=== PATIENT | male | born 1950 ===

== ENCOUNTER 2022-03-08 09:15 | Day surgery (SDC) | payer MEDICARE ==
[~2022-03-08] VITALS: Ht 175.3 cm; Wt 85.2 kg
[2022-03-08] MEDS ORDERED: AMLO5 (09:29)
[2022-03-08] MEDS ORDERED: LEVSOD88 (09:29)
[2022-03-08] MEDS ORDERED: BENAZEPRIL HCL40 M1 (09:29)
[2022-03-08] MEDS ORDERED: EZET10 (09:29)
--- NOTE | 2022-03-08 11:22 | NUR ---
03/08/22 1122 Stephanie Martinez 13ML NORMAL SALINE USED TO ELEVATE POLYPS
== END 2022-03-08 11:56 | disposition home or self-care (01) ==
LOC: ORSCSDS 09:15
PROVIDERS: Internal Medicine Gastroenterology
PROC: 0DBP8ZX Excision of Rectum, Via Natural or Artificial Opening Endoscopic, Diagnostic (ICD-10-PCS; principal; 2022-03-08 10:30)
PROC: 0DBL8ZX Excision of Transverse Colon, Via Natural or Artificial Opening Endoscopic, Diagnostic (ICD-10-PCS; principal; 2022-03-08 10:30)
PROC: 0DBH8ZX Excision of Cecum, Via Natural or Artificial Opening Endoscopic, Diagnostic (ICD-10-PCS; principal; 2022-03-08 10:30)
PROC: 0DBK8ZX Excision of Ascending Colon, Via Natural or Artificial Opening Endoscopic, Diagnostic (ICD-10-PCS; principal; 2022-03-08 10:30)
DX: R19.5 Other fecal abnormalities (principal); D12.2 Benign neoplasm of ascending colon; D12.0 Benign neoplasm of cecum; D12.3 Benign neoplasm of transverse colon; D12.8 Benign neoplasm of rectum; K62.1 Rectal polyp; K57.30 Diverticulosis of large intestine without perforation or abscess without bleeding; K64.8 Other hemorrhoids; I10 Essential (primary) hypertension; Z87.891 Personal history of nicotine dependence; Z79.899 Other long term (current) drug therapy
CPT/HCPCS: 88305; J2704; J7120

== ENCOUNTER 2023-10-23 07:58 | Day surgery (SDC) | payer MEDICARE ==
[~2023-10-23] VITALS: Ht 175.3 cm; Wt 84.6 kg
[~2023-10-23 07:58] MED LIST: AMLO5; BENAZEPRIL HCL40 M1; EZET10; LEVSOD88; LOSA50; Lactated Ringer's 1,000 ML IV ONE; MULVITA; propofoL 50 ML IV ONE
[2023-10-23] MEDS ORDERED: Lactated Ringer's 1,000 ML IV ONE (08:45)
[2023-10-23 10:01] VITALS: BP 100/71
== END 2023-10-23 10:06 | disposition home or self-care (01) ==
LOC: ORSCSDS 07:58
PROVIDERS: Specialist
PROC: 3E0H8KZ Introduction of Other Diagnostic Substance into Lower GI, Via Natural or Artificial Opening Endoscopic (ICD-10-PCS; principal; 2023-10-23 09:15)
PROC: 0DBL8ZX Excision of Transverse Colon, Via Natural or Artificial Opening Endoscopic, Diagnostic (ICD-10-PCS; principal; 2023-10-23 09:15)
PROC: 0DBK8ZX Excision of Ascending Colon, Via Natural or Artificial Opening Endoscopic, Diagnostic (ICD-10-PCS; principal; 2023-10-23 09:15)
PROC: 0DBH8ZX Excision of Cecum, Via Natural or Artificial Opening Endoscopic, Diagnostic (ICD-10-PCS; principal; 2023-10-23 09:15)
DX: Z86.010 Personal history of colon polyps (principal); K63.5 Polyp of colon; K64.4 Residual hemorrhoidal skin tags; K64.8 Other hemorrhoids; K57.30 Diverticulosis of large intestine without perforation or abscess without bleeding; K21.9 Gastro-esophageal reflux disease without esophagitis; Z87.11 Personal history of peptic ulcer disease; E78.5 Hyperlipidemia, unspecified; I10 Essential (primary) hypertension; Z86.16 Personal history of COVID-19; Z79.899 Other long term (current) drug therapy
CPT/HCPCS: 88305; J2704; J7120